=== PATIENT | male | born 1970 | race Hispanic/Latino ===

== ENCOUNTER → 2023-10-06 13:16 | Outpatient (REF) | payer OTHER, SELFPAY | LOC: HWRAD 13:16 | PROVIDERS: ATTENDING PHYSICIAN Radiology Diagnostic Radiology; FAMILY PHYSICIAN Nurse Practitioner Family | DX: Z13.5 Encounter for screening for eye and ear disorders (principal) | CPT/HCPCS: 70030 ==

== ENCOUNTER → 2024-08-17 15:02 | Outpatient (REF) | payer OTHER, SELFPAY | LOC: RCS 15:02 | PROVIDERS: ATTENDING PHYSICIAN Internal Medicine Cardiovascular Disease; FAMILY PHYSICIAN Nurse Practitioner Family | DX: I25.5 Ischemic cardiomyopathy (principal) | CPT/HCPCS: 93306 ==